=== PATIENT | female | born 1965 | race African-American/Black ===

== ENCOUNTER 2018-05-06 11:32 | Inpatient (IN) | payer OTHER ==
[2018-05-06 13:34] VITALS: BMI 28.0
--- NOTE | 2018-05-06 14:47 | HP ---
COWS - Scale Resting Pulse: 0= [place] 80 or Below Sweatin= Chills/Flushing Restless Observation: 1= Difficult to Sit Still Pupil Size: 1= Pupils >than Normal Bone or Joint Aches: 2= Severe Diffuse Aches Runny Nose/ Eye Tearin= Runny Nose/Eyes GI Upset > 30mins: 0= None Tremor Observation: 2= Slight Tremor Visible Yawning Observation: 1= 1-2x During Session Anxiety or Irritability: 2=Irritable/Anxious Goose Flesh Skin: 0=Smooth Skin COWS Score: 12 CIWA Score - CIWA Score Nausea/Vomitin-No Nausea/No Vomiting Muscle Tremors: 2 Anxiety: 2 Agitation: 2 Paroxysmal Sweats: 2 Orientation: 0-Oriented Tacttile Disturbances: 0-None Auditory Disturbances: 2-Mild Harshness/Frighten Visual Disturbances: 0-None Headache: 3-Moderate CIWA-Ar Total Score: 13 Admission ROS BHS - HPI Chief Complaint: PATIENT PRESENTS WITH HEROIN/ETOH WITHDRAWAL SX Allergies/Adverse Reactions: Allergies Allergy/AdvReac Type Severity Reaction Status Date / Time peach Allergy Severe Hives Verified 05/06/18 13:48 NKDA Allergy Uncoded 05/06/18 13:48 History of Present Illness: PATIENT PRESENTS WTIH ETOH/HEROIN WITHDRAWAL SX. PATIENT PRESENTS FIRST TIME ADMISSION TO [facility]. PATIENT HAS BEEN ADMITTED TO DETOX IN PAST, AT [facility] IN 2016. PATIENT STARTED SNIFFING HEROIN/COCAINE AND DRINKING ETOH SINCE AGE 14. PATIENT DRINKS 4 SHOTS OF LIQUOR AND SNIFFS 5 BAGS OF HEROIN DAILY. LAST TIME SHE USED BOTH SUBSTANCES WAS TODAY. PATIENT DENIES HX OF SEIZURES. +BLACKOUTS. DENIES DRINKING IN THE MORNING. PMH INCLUDES HEP C ( UNTREATED), BIPOLAR DISORDER, HTN AND DM (DIET CONTROLLED). PATIENT DENIES SI/ HI AND SUICIDE ATTEMPTS. Exam Limitations: No Limitations - Ebola screening Have you traveled outside of the country in the last 21 days: No Have you had contact with anyone from an Ebola affected area: No Have you been sick,other than usual withdrawal symptoms: No Do you have a fever: No - Review of Systems Constitutional: Chills, Night Sweats, Changes in sleep, Unexplained wgt Loss EENT: reports: Tearing, Nose Congestion Respiratory: reports: No Symptoms reported Cardiac: reports: No Symptoms Reported GI: reports: Poor Fluid Intake : reports: No Symptoms Reported Integumentary: reports: Sweating Endocrine: reports: No Symptoms Reported, Unexplained Weight Loss Hematology: reports: No Symptoms Reported Psychiatric: reports: Anxious, Depressed Patient History - Patient Medical History Hx Anemia: No Hx Asthma: No Hx Chronic Obstructive Pulmonary Disease (COPD): No Hx Cancer: No Hx Cardiac Disorders: No Hx Congestive Heart Failure: No Hx Hypertension: Yes (NO MEDS) Hx Hypercholesterolemia: No Hx Pacemaker: No HX Cerebrovascular Accident: No Hx Seizures: No Hx Dementia: No Hx Diabetes: Yes (NO MEDS) Hx Gastrointestinal Disorders: No Hx Liver Disease: Yes (HEPATITIS C) Hx Genitourinary Disorders: No Hx Sexually Transmitted Disorders: No Hx Renal Disease (ESRD): No Hx Thyroid Disease: No Hx Human Immunodeficiency Virus (HIV): No Hx Hepatitis C: Yes Hx Depression: Yes Hx Suicide Attempt: No Hx Bipolar Disorder: No Hx Schizophrenia: No - Patient Surgical History Past Surgical History: Yes Hx Neurologic Surgery: No Hx Cataract Extraction: No Hx Cardiac Surgery: No Hx Lung Surgery: No Hx Breast Surgery: No Hx Breast Biopsy: No Hx Abdominal Surgery: Yes (hysterecomy in 10/2015) Hx Appendectomy: No Hx Cholecystectomy: No Hx Genitourinary Surgery: No Hx Section: No Hx Orthopedic Surgery: No Hx Hysterectomy: Yes Anesthesia Reaction: No - PPD History Previous Implant?: Yes Documented Results: Negative w/o proof Implanted On Prior R Admission?: No PPD to be Administered?: Yes - Reproductive History Patient : No - Smoking Cessation Smoking history: Current every day smoker Have you smoked in the past 12 months: Yes Aproximately how many cigarettes per day: 8 Hx Chewing Tobacco Use: No Initiated information on smoking cessation: Yes 'Breaking Loose' booklet given: 05/06/18 - Substance & Tx. History Hx Alcohol Use: Yes Hx Substance Use: Yes Substance Use Type: Alcohol, Cocaine, Heroin, Marijuana Hx Substance Use Treatment: Yes - Substances Abused Heroin Route: Inhalation Frequency: Daily Amount used: 4-5 bags Age of first use: 15 Date of Last Use: 05/06/18 Cocaine Route: Inhalation Frequency: Daily Amount used: $50-60 Age of first use: 14 Date of Last Use: 05/05/18 Alcohol-vodka Route: Oral Frequency: Daily Amount used: 2 pts. Age of first use: 14 Date of Last Use: 05/05/18 Family Disease History - Family Disease History Family Disease History: Diabetes: Father () Admission Physical Exam [facility] - Vital Signs Vital Signs: Vital Signs - 24 hr 05/06/18 13:31 Temperature 99 F Pulse Rate 78 Respiratory 20 Rate Blood Pressure 141/100 - Physical General Appearance: Yes: Appropriately Dressed, Tremorous, Sweating, Anxious HEENTM: Yes: EOMI, Hearing grossly Normal, Normocephalic, Normal Voice, LIZETH, Pharynx Normal, Nasal Congestion Respiratory: Yes: Chest Non-Tender, Lungs Clear, Normal Breath Sounds, No Respiratory Distress, No Accessory Muscle Use Neck: Yes: No masses,lesions,Nodules, Supple Breast: Yes: Breast Exam Deferred Cardiology: Yes: Regular Rhythm, Regular Rate, S1, S2 Abdominal: Yes: Normal Bowel Sounds, Non Tender, Soft Genitourinary: Yes: Within Normal Limits Back: Yes: Normal Inspection, Muscle Spasm Musculoskeletal: Yes: full range of Motion, Gait Steady, Back pain, Muscle Pain Extremities: Yes: Normal Inspection, Normal Range of Motion, Non-Tender, Tremors Neurological: Yes: dragline oiler II-XII NML intact, Alert, Normal Response, Depressed Affect Integumentary: Yes: Normal Color, Warm, Moist Lymphatic: Yes: Within Normal Limits - Diagnostic (1) Opioid dependence with withdrawal Current Visit: Yes Status: Acute (2) Alcohol dependence with uncomplicated withdrawal Current Visit: Yes Status: Acute (3) Bipolar disorder Current Visit: Yes Status: Chronic Qualifiers: Current episode severity: unspecified (4) Marijuana dependence Current Visit: Yes Status: Chronic (5) Cocaine dependence Current Visit: Yes Status: Chronic Qualifiers: Substance use status: uncomplicated Qualified Code(s): F14.20 - Cocaine dependence, uncomplicated (6) Diabetes 1.5, managed as type 2 Current Visit: Yes Status: Chronic (7) HTN (hypertension) Current Visit: Yes Status: Chronic Qualifiers: Hypertension type: unspecified Qualified Code(s): I10 - Essential (primary ) hypertension Cleared for Admission [facility] - Detox or Rehab [facility] Level of Care: Medically Managed Detox Regimen/Protocol: Methadone/Librium [facility] Breath Alcohol Content Breath Alcohol Content: 0 Urine Pregancy Test - Result Urine Test Results: Negative- NO Line Present Urine Drug Screen - Results Drug Screen Negative: No Urine Drug Screen Results: THC-Marijuana, ROMULO-Cocaine, OPI-Opiates, MTD- Methadone, FEN-Fentanyl
[2018-05-06] MEDS ORDERED: IBUPROFEN 400 MG TABLET (FP) PO PRN (14:57)
[2018-05-06] MEDS ORDERED: MAGNESIUM HYDROX 2400MG/30ML ORAL SUSPENSION 30 ML CUP PO PRN (14:57)
[2018-05-06] MEDS ORDERED: MAGNESIUM CITRATE 300 ML BOTTLE PO PRN (14:57)
[2018-05-06] MEDS ORDERED: NICOTINE POLACRILEX 2 MG GUM BUC PRN (14:57)
[2018-05-06] MEDS ORDERED: LOPERAMIDE HCL 2 MG CAPSULE PO PRN (14:57)
[2018-05-06] MEDS ORDERED: ACETAMINOPHEN 325 MG TABLET (FP) PO PRN (14:57)
[2018-05-06] MEDS ORDERED: guaiFENesin/D-METHORPHAN HB 10 ML UNIT-DOSE CUPS PO PRN (14:57)
[2018-05-06] MEDS ORDERED: P-EPHED 60MG/TRIPROLIDI 2.5MG TABLET PO PRN (14:57)
[2018-05-06] MEDS ORDERED: MAG HYDROX/AL HYDROX/SIMETH 30 ML UNIT-DOSE CUP PO PRN (14:57)
[2018-05-06] MEDS ORDERED: MENTHOL/PHENOL 1 EACH UD MM PRN (14:57)
[2018-05-06] MEDS ORDERED: chlordiazePOXIDE HCL 25 MG CAPSULE PO PRN (14:59)
[2018-05-06] MEDS ORDERED: METHADONE HCL 10 MG TABLET (FOR DETOX USE ONLY) PO ONE ×2 (15:15→23:00)
--- NOTE | 2018-05-06 15:43 | CONSULT ---
[facility] Psychiatric Consult - Data Date of interview: 05/06/18 Admission source: [facility] Identifying data: This is a 52 years old female, single mother of three, homeless, on PA support, with psychiatric hospitalization history, reports Alcohol, Heroin, Cocaine and Nicotine dependencw, reports withdrawa; symptoms and seeking detox.As per chart has Bipolar Disorder history. Substance Abuse History: Smoking history: Current every day smoker. Have you smoked in the past 12 months: Yes. Aproximately how many cigarettes per day: 8. Hx Chewing Tobacco Use: No. Initiated information on smoking cessation: Yes. 'Breaking Loose' booklet given: 05/06/18. - Substance & Tx. History. Hx Alcohol Use: Yes. Hx Substance Use: Yes. Substance Use Type: Alcohol, Cocaine , Heroin, Marijuana. Hx Substance Use Treatment: Yes. - Substances Abused. * * Heroin. Route: Inhalation. Frequency: Daily. Amount used: 4-5 bags. Age of first use: 15. Date of Last Use: 05/06/18. Cocaine. Route: Inhalation. Frequency: Daily. Amount used: $50-60. Age of first use: 14. Date of Last Use: 05/05/18. Alcohol-vodka. Route: Oral. Frequency: Daily. Amount used : 2 pts. Age of first use: 14. Date of Last Use: 05/05/18 Medical History: HTN, DM-II, HepC+ Psychiatric History: Patient reports history of depression and anxiety, Bipolar Disorder history with most recent psychiatric admission on more then 10 years ago, reports c irrently stable on: Lamictal 25mg poqd. Seroquel 200mg po bid. Denies suicidal, homicidal ideation. Physical/Sexual Abuse/Trauma History: Denies, unclear Additional Comment: Lamictal 25mg poqd. Seroquel 200mg po, bid Mental Status Exam - Mental Status Exam Alert and Oriented to: Person Cognitive Function: Fair Patient Appearance: Unkempt Mood: Anxious Affect: Mood Congruent Patient Behavior: Cooperative Speech Pattern: Appropriate Voice Loudness: Normal Thought Process: Goal Oriented Thought Disorder: Being Controlled Hallucinations: Denies Suicidal Ideation: Denies Homicidal Ideation: Denies Insight/Judgement: Fair Sleep: Difficulty falling asleep Appetite: Weight gain Muscle strength/Tone: Mild Hypotonicity Gait/Station: Shuffling Additional Comments: Lamictal 25mg poqd. 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 Seroquel 200mg po, bid
[2018-05-06] MEDS: chlordiazePOXIDE HCL 25 MG CAPSULE PO SCH ×2 (16:38→22:31)
[2018-05-06] MEDS ORDERED: MELATONIN 5 MG TABLETS PO PRN (22:00)
[2018-05-06] MEDS: THIAMINE HCL 100 MG TABLET (FP) PO SCH (22:31)
[2018-05-06] MEDS: QUEtiapine FUMARATE 200 MG TABLET PO SCH (22:31)
[2018-05-06 23:15] LABS: URINE APPEARANCE SLCLOUDY; URINE BILIRUBIN NEGATIVE (<2.0 mg/dL); URINE COLOR LTYELLOW; URINE GLUCOSE (UA) NEGATIVE (NEGATIVE); URINE KETONE NEGATIVE (NEGATIVE); URINE LEUK ESTERASE NEGATIVE (NEGATIVE); URINE NITRITE NEGATIVE (NEGATIVE); URINE PROTEIN NEGATIVE (NEGATIVE); URINE UROBILINOGEN NEGATIVE mg/dL (0.2-1.0)
[2018-05-07] MEDS: chlordiazePOXIDE HCL 25 MG CAPSULE PO SCH ×4 (06:44→22:50)
--- NOTE | 2018-05-07 09:45 | EKG ---
Test Reason : Blood Pressure : / mmHG Vent. Rate : 085 BPM Atrial Rate : 085 BPM P-R Int : 120 ms QRS Dur : 066 ms QT Int : 308 ms P-R-T Axes : 060 051 -06 degrees QTc Int : 366 ms NORMAL SINUS RHYTHM POSSIBLE LEFT ATRIAL ENLARGEMENT SEPTAL INFARCT , AGE UNDETERMINED NONSPECIFIC ST ABNORMALITY ABNORMAL ECG NO PREVIOUS ECGS AVAILABLE Confirmed by RAQUEL KEARNEY MD ([id number]) on 05/07/2018 9:44:47 AM Referred By: Confirmed By:RAQUEL KEARNEY MD
[2018-05-07] MEDS ORDERED: METHADONE HCL 10 MG TABLET (FOR DETOX USE ONLY) PO SCH (10:00)
[2018-05-07 10:39] LABS: HEMATOCRIT 37.8 % (32.4-45.2); HEMOGLOBIN 11.9 GM/dL (10.7-15.3); MCH 22.7 pg (25.7-33.7); MCHC 31.5 g/dl (32.0-36.0); MEAN CELL VOLUME 72.1 fl (80-96); MEAN PLT VOLUME 9.2 fl (7.5-11.1); PLATELET COUNT 259 K/MM3 (134-434); RBC 5.24 M/mm3 (3.60-5.2); RDW 14.4 % (11.6-15.6); WHITE BLOOD COUNT 7.1 K/mm3 (4.0-10.0)
[2018-05-07 10:50] LABS: ALBUMIN 3.5 g/dl (3.4-5.0); ALK PHOS 85 U/L (45-117); ANION GAP 7 MMOL/L (8-16); BILIRUBIN,TOTAL 0.2 mg/dL (0.2-1); BLOOD UREA NITROGEN 23 mg/dL (7-18); CALCIUM 8.6 mg/dL (8.5-10.1); CHLORIDE 107 mmol/L (98-107); CO2 26 mmol/L (21-32); CREATININE 0.8 mg/dL (0.55-1.3); GLUCOSE,RANDOM 105 mg/dL (74-106); POTASSIUM 4.4 mmol/L (3.5-5.1); SGOT/AST 27 U/L (15-37); SGPT/ALT 43 U/L (13-61); SODIUM 140 mmol/L (136-145); TOT PROT 7.5 g/dl (6.4-8.2)
[2018-05-07] MEDS: PRENATAL VITAMINS W/ FOLIC ACID TABLET (FP) PO SCH (10:52)
[2018-05-07] MEDS: QUEtiapine FUMARATE 200 MG TABLET PO SCH ×2 (10:52→22:49)
[2018-05-07] MEDS: hydrOXYzine PAMOATE 50 MG CAPSULE (FP) PO PRN (10:52)
[2018-05-07] MEDS: lamoTRIgine 25 MG TABLET PO SCH (10:52)
--- NOTE | 2018-05-07 14:02 | PN ---
[facility] CIWA - CIWA Score Nausea/Vomitin-No Nausea/No Vomiting Muscle Tremors: 3 Anxiety: 4-Mod. Anxious/Guarded Agitation: 1-Slight > Activity Paroxysmal Sweats: No Perspiration Orientation: 0-Oriented Tacttile Disturbances: 0-None Auditory Disturbances: 0-None Visual Disturbances: 0-None Headache: 1-Very Mild CIWA-Ar Total Score: 9 S COWS - Scale Resting Pulse: 0= [place] 80 or Below Sweatin= No chills or Flushing Restless Observation: 1= Difficult to Sit Still Pupil Size: 0= Normal to Room Light Bone or Joint Aches: 2= Severe Diffuse Aches Runny Nose/ Eye Tearin= None GI Upset > 30mins: 0= None Tremor Observation of Outstretched Hands: 2= Slight Tremor Visible Yawning Observation: 1= 1-2x During Session Anxiety or Irritability: 2=Irritable/Anxious Goose Flesh Skin: 0=Smooth Skin COWS Score: 8 BHS Progress Note (SOAP) Subjective: PATIENT C/O MILD HEADACHE, ANXIETY, BODY ACHES AND SHAKES. Objective: 05/07/18 14:00 Laboratory Tests 05/06/18 05/06/18 05/07/18 16:08 16:35 06:43 WBC RBC Hgb Hct MCV MCH MCHC RDW Plt Count MPV Sodium Potassium Chloride Carbon Dioxide Anion Gap BUN Creatinine Creat Clearance w eGFR POC Glucometer 188 107 Random Glucose Calcium Total Bilirubin AST ALT Alkaline Phosphatase Total Protein Albumin Urine Color Ltyellow Urine Appearance Slcloudy Urine pH 5.0 Ur Specific [place] 1.021 Urine Protein Negative Urine Glucose (UA) Negative Urine Ketones Negative Urine Blood Negative Urine Nitrite Negative Urine Bilirubin Negative Urine Urobilinogen Negative Ur Leukocyte Esterase Negative RPR Titer HIV 1&2 Antibody Screen HIV P24 Antigen 05/07/18 05/07/18 05/07/18 07:00 07:00 07:00 WBC 7.1 RBC 5.24 H Hgb 11.9 Hct 37.8 MCV 72.1 L MCH 22.7 L MCHC 31.5 L RDW 14.4 Plt Count 259 MPV 9.2 Sodium 140 Potassium 4.4 Chloride 107 Carbon Dioxide 26 Anion Gap 7 L BUN 23 H Creatinine 0.8 Creat Clearance w eGFR > 60 POC Glucometer Random Glucose 105 Calcium 8.6 Total Bilirubin 0.2 AST 27 ALT 43 Alkaline Phosphatase 85 Total Protein 7.5 Albumin 3.5 Urine Color Urine Appearance Urine pH Ur Specific [place] Urine Protein Urine Glucose (UA) Urine Ketones Urine Blood Urine Nitrite Urine Bilirubin Urine Urobilinogen Ur Leukocyte Esterase RPR Titer HIV 1&2 Antibody Screen Negative HIV P24 Antigen Negative 05/07/18 07:00 WBC RBC Hgb Hct MCV MCH MCHC RDW Plt Count MPV Sodium Potassium Chloride Carbon Dioxide Anion Gap BUN Creatinine Creat Clearance w eGFR POC Glucometer Random Glucose Calcium Total Bilirubin AST ALT Alkaline Phosphatase Total Protein Albumin Urine Color Urine Appearance Urine pH Ur Specific [place] Urine Protein Urine Glucose (UA) Urine Ketones Urine Blood Urine Nitrite Urine Bilirubin Urine Urobilinogen Ur Leukocyte Esterase RPR Titer Nonreactive HIV 1&2 Antibody Screen HIV P24 Antigen Vital Signs Temperature 98.1 F 05/07/18 09:14 Pulse Rate 85 05/07/18 09:14 Respiratory Rate 18 05/07/18 09:14 Blood Pressure 152/84 05/07/18 09:14 O2 Sat by Pulse Oximetry (%) SKIN WARM AND DRY ALERT AND ORIENTED X 3 AMB AD DAVID EXT +TREMORS, FULL ROM 05/07/18 14:01 Assessment: 05/07/18 14:02 WITHDRAWAL SX Plan: CONTINUE DETOX ENCOURAGE ORAL FLUIDS CONTINUE TO MONITOR CLINICALLY
[2018-05-07] MEDS: THIAMINE HCL 100 MG TABLET (FP) PO SCH (22:50)
[2018-05-08] MEDS: chlordiazePOXIDE HCL 25 MG CAPSULE PO SCH ×2 (06:01→10:12)
[2018-05-08] MEDS: METHADONE HCL 5 MG TABLET (FOR DETOX USE ONLY) PO SCH (10:12)
[2018-05-08] MEDS: PRENATAL VITAMINS W/ FOLIC ACID TABLET (FP) PO SCH (10:12)
[2018-05-08] MEDS: lamoTRIgine 25 MG TABLET PO SCH (10:12)
[2018-05-08] MEDS: QUEtiapine FUMARATE 200 MG TABLET PO SCH ×2 (10:12→22:15)
--- NOTE | 2018-05-08 15:19 | PN ---
[facility] CIWA - CIWA Score Nausea/Vomitin-No Nausea/No Vomiting Muscle Tremors: 4-Moderate,w/Arms Extend Anxiety: 3 Agitation: 4-Moderately Restless Paroxysmal Sweats: No Perspiration Orientation: 0-Oriented Tacttile Disturbances: 0-None Auditory Disturbances: 0-None Visual Disturbances: 0-None Headache: 0-None Present CIWA-Ar Total Score: 11 S COWS - Scale Resting Pulse: 1= [place] 81-100 Sweatin= No chills or Flushing Restless Observation: 1= Difficult to Sit Still Pupil Size: 0= Normal to Room Light Bone or Joint Aches: 0= None Runny Nose/ Eye Tearin= Nasal Congestion GI Upset > 30mins: 0= None Tremor Observation of Outstretched Hands: 2= Slight Tremor Visible Yawning Observation: 0= None Anxiety or Irritability: 1=Feels Anxious/Irritable Goose Flesh Skin: 0=Smooth Skin COWS Score: 6 S Progress Note (SOAP) Subjective: States feels anxious but better. Still has some shakes and occasional chills. Eating okay. Objective: A&O x3. Mild tremors of hands noted. Gait steady. Conversing freely w/ roommate. Vital Signs 05/08/18 05/08/18 09:23 13:52 Temperature 96.9 F L 97.2 F L Pulse Rate 85 89 Respiratory 16 18 Rate Blood Pressure 122/89 140/71 Laboratory Last Values WBC 7.1 K/mm3 (4.0-10.0) 05/07/18 07:00 RBC 5.24 M/mm3 (3.60-5.2) H 05/07/18 07:00 Hgb 11.9 GM/dL (10.7-15.3) 05/07/18 07:00 Hct 37.8 % (32.4-45.2) 05/07/18 07:00 MCV 72.1 fl (80-96) L 05/07/18 07:00 MCH 22.7 pg (25.7-33.7) L 05/07/18 07:00 MCHC 31.5 g/dl (32.0-36.0) L 05/07/18 07:00 RDW 14.4 % (11.6-15.6) 05/07/18 07:00 Plt Count 259 K/MM3 (134-434) 05/07/18 07:00 MPV 9.2 fl (7.5-11.1) 05/07/18 07:00 Sodium 140 mmol/L (136-145) 05/07/18 07:00 Potassium 4.4 mmol/L (3.5-5.1) 05/07/18 07:00 Chloride 107 mmol/L (98-107) 05/07/18 07:00 Carbon Dioxide 26 mmol/L (21-32) 05/07/18 07:00 Anion Gap 7 MMOL/L (8-16) L 05/07/18 07:00 BUN 23 mg/dL (7-18) H 05/07/18 07:00 Creatinine 0.8 mg/dL (0.55-1.3) 05/07/18 07:00 Creat Clearance w eGFR > 60 (>60) 05/07/18 07:00 POC Glucometer 139 UNITS (80-120) 05/08/18 07:13 Random Glucose 105 mg/dL (74-106) 05/07/18 07:00 Calcium 8.6 mg/dL (8.5-10.1) 05/07/18 07:00 Total Bilirubin 0.2 mg/dL (0.2-1) 05/07/18 07:00 AST 27 U/L (15-37) 05/07/18 07:00 ALT 43 U/L (13-61) 05/07/18 07:00 Alkaline Phosphatase 85 U/L (45-117) 05/07/18 07:00 Total Protein 7.5 g/dl (6.4-8.2) 05/07/18 07:00 Albumin 3.5 g/dl (3.4-5.0) 05/07/18 07:00 Urine Color Ltyellow 05/06/18 16:08 Urine Appearance Slcloudy 05/06/18 16:08 Urine pH 5.0 (5.0-8.0) 05/06/18 16:08 Ur Specific [place] 1.021 (1.010-1.035) 05/06/18 16:08 Urine Protein Negative (NEGATIVE) 05/06/18 16:08 Urine Glucose (UA) Negative (NEGATIVE) 05/06/18 16:08 Urine Ketones Negative (NEGATIVE) 05/06/18 16:08 Urine Blood Negative (NEGATIVE) 05/06/18 16:08 Urine Nitrite Negative (NEGATIVE) 05/06/18 16:08 Urine Bilirubin Negative (<2.0 mg/dL) 05/06/18 16:08 Urine Urobilinogen Negative mg/dL (0.2-1.0) 05/06/18 16:08 Ur Leukocyte Esterase Negative (NEGATIVE) 05/06/18 16:08 RPR Titer Nonreactive (NONREACTIVE) 05/07/18 07:00 HIV 1&2 Antibody Screen Negative 05/07/18 07:00 HIV P24 Antigen Negative 05/07/18 07:00 Labs reviewed. Assessment: Withdrawal symptoms. Plan: Continue detox.
[2018-05-08] MEDS: chlordiazePOXIDE 5 MG CAPSULE PO SCH ×2 (18:07→22:15)
[2018-05-08] MEDS: THIAMINE HCL 100 MG TABLET (FP) PO SCH (22:15)
[2018-05-09] MEDS: chlordiazePOXIDE 5 MG CAPSULE PO SCH ×2 (06:28→10:28)
[2018-05-09] MEDS: hydrOXYzine PAMOATE 50 MG CAPSULE (FP) PO PRN (09:02)
[2018-05-09] MEDS: METHADONE HCL 5 MG TABLET (FOR DETOX USE ONLY) PO SCH (10:27)
[2018-05-09] MEDS: lamoTRIgine 25 MG TABLET PO SCH (10:27)
[2018-05-09] MEDS: PRENATAL VITAMINS W/ FOLIC ACID TABLET (FP) PO SCH (10:27)
[2018-05-09] MEDS: QUEtiapine FUMARATE 200 MG TABLET PO SCH ×2 (10:48→22:07)
--- NOTE | 2018-05-09 11:14 | PN ---
BHS Progress Note (SOAP) Subjective: tremor sweat anxiety restlessness body aches Objective: 05/09/18 11:12 Vital Signs Temperature 98.4 F 05/09/18 09:43 Pulse Rate 83 05/09/18 09:43 Respiratory Rate 16 05/09/18 09:43 Blood Pressure 132/64 05/09/18 09:43 O2 Sat by Pulse Oximetry (%) Laboratory Last Values WBC 7.1 K/mm3 (4.0-10.0) 05/07/18 07:00 RBC 5.24 M/mm3 (3.60-5.2) H 05/07/18 07:00 Hgb 11.9 GM/dL (10.7-15.3) 05/07/18 07:00 Hct 37.8 % (32.4-45.2) 05/07/18 07:00 MCV 72.1 fl (80-96) L 05/07/18 07:00 MCH 22.7 pg (25.7-33.7) L 05/07/18 07:00 MCHC 31.5 g/dl (32.0-36.0) L 05/07/18 07:00 RDW 14.4 % (11.6-15.6) 05/07/18 07:00 Plt Count 259 K/MM3 (134-434) 05/07/18 07:00 MPV 9.2 fl (7.5-11.1) 05/07/18 07:00 Sodium 140 mmol/L (136-145) 05/07/18 07:00 Potassium 4.4 mmol/L (3.5-5.1) 05/07/18 07:00 Chloride 107 mmol/L (98-107) 05/07/18 07:00 Carbon Dioxide 26 mmol/L (21-32) 05/07/18 07:00 Anion Gap 7 MMOL/L (8-16) L 05/07/18 07:00 BUN 23 mg/dL (7-18) H 05/07/18 07:00 Creatinine 0.8 mg/dL (0.55-1.3) 05/07/18 07:00 Creat Clearance w eGFR > 60 (>60) 05/07/18 07:00 POC Glucometer 121 UNITS (80-120) 05/09/18 06:24 Random Glucose 105 mg/dL (74-106) 05/07/18 07:00 Calcium 8.6 mg/dL (8.5-10.1) 05/07/18 07:00 Total Bilirubin 0.2 mg/dL (0.2-1) 05/07/18 07:00 AST 27 U/L (15-37) 05/07/18 07:00 ALT 43 U/L (13-61) 05/07/18 07:00 Alkaline Phosphatase 85 U/L (45-117) 05/07/18 07:00 Total Protein 7.5 g/dl (6.4-8.2) 05/07/18 07:00 Albumin 3.5 g/dl (3.4-5.0) 05/07/18 07:00 Urine Color Ltyellow 05/06/18 16:08 Urine Appearance Slcloudy 05/06/18 16:08 Urine pH 5.0 (5.0-8.0) 05/06/18 16:08 Ur Specific [place] 1.021 (1.010-1.035) 05/06/18 16:08 Urine Protein Negative (NEGATIVE) 05/06/18 16:08 Urine Glucose (UA) Negative (NEGATIVE) 05/06/18 16:08 Urine Ketones Negative (NEGATIVE) 05/06/18 16:08 Urine Blood Negative (NEGATIVE) 05/06/18 16:08 Urine Nitrite Negative (NEGATIVE) 05/06/18 16:08 Urine Bilirubin Negative (<2.0 mg/dL) 05/06/18 16:08 Urine Urobilinogen Negative mg/dL (0.2-1.0) 05/06/18 16:08 Ur Leukocyte Esterase Negative (NEGATIVE) 05/06/18 16:08 RPR Titer Nonreactive (NONREACTIVE) 05/07/18 07:00 HIV 1&2 Antibody Screen Negative 05/07/18 07:00 HIV P24 Antigen Negative 05/07/18 07:00 labn oted Assessment: 05/09/18 11:13 withdrawal sx Plan: continue detox
[2018-05-09] MEDS ORDERED: LIDOCAINE VISCOUS 2% ORAL/TOP 20 ML UNIT-DOSE CUP MM PRN (12:34)
[2018-05-09] MEDS: chlordiazePOXIDE HCL 10 MG CAPSULE PO SCH ×2 (19:20→22:07)
[2018-05-09] MEDS: THIAMINE HCL 100 MG TABLET (FP) PO SCH (22:07)
[2018-05-10] MEDS: chlordiazePOXIDE HCL 10 MG CAPSULE PO SCH ×2 (05:51→10:07)
[2018-05-10] MEDS ORDERED: METHADONE HCL 10 MG TABLET (FOR DETOX USE ONLY) PO ONE (10:00)
[2018-05-10] MEDS ORDERED: METHADONE HCL 10 MG TABLET (FOR DETOX USE ONLY) PO SCH (10:00)
[2018-05-10] MEDS ORDERED: METHADONE HCL 5 MG TABLET (FOR DETOX USE ONLY) PO SCH (10:00)
[2018-05-10] MEDS: lamoTRIgine 25 MG TABLET PO SCH (10:07)
--- NOTE | 2018-05-10 10:25 | PN ---
[facility] Progress Note (SOAP) Subjective: feeling better today but tooth ache wants to go to the dentist for pain medication encourage the patient to follow up recommendation dental appointment today patient prefers to go to the dentist tomorrow upon discharged from detox unit review ER treatment that begin augmentin continue lidocaine MM explain dental appointment in detail Objective: 05/10/18 10:24 Vital Signs Temperature 98.1 F 05/10/18 10:17 Pulse Rate 84 05/10/18 10:17 Respiratory Rate 16 05/10/18 10:17 Blood Pressure 123/76 05/10/18 10:17 O2 Sat by Pulse Oximetry (%) Laboratory Last Values WBC 7.1 K/mm3 (4.0-10.0) 05/07/18 07:00 RBC 5.24 M/mm3 (3.60-5.2) H 05/07/18 07:00 Hgb 11.9 GM/dL (10.7-15.3) 05/07/18 07:00 Hct 37.8 % (32.4-45.2) 05/07/18 07:00 MCV 72.1 fl (80-96) L 05/07/18 07:00 MCH 22.7 pg (25.7-33.7) L 05/07/18 07:00 MCHC 31.5 g/dl (32.0-36.0) L 05/07/18 07:00 RDW 14.4 % (11.6-15.6) 05/07/18 07:00 Plt Count 259 K/MM3 (134-434) 05/07/18 07:00 MPV 9.2 fl (7.5-11.1) 05/07/18 07:00 Sodium 140 mmol/L (136-145) 05/07/18 07:00 Potassium 4.4 mmol/L (3.5-5.1) 05/07/18 07:00 Chloride 107 mmol/L (98-107) 05/07/18 07:00 Carbon Dioxide 26 mmol/L (21-32) 05/07/18 07:00 Anion Gap 7 MMOL/L (8-16) L 05/07/18 07:00 BUN 23 mg/dL (7-18) H 05/07/18 07:00 Creatinine 0.8 mg/dL (0.55-1.3) 05/07/18 07:00 Creat Clearance w eGFR > 60 (>60) 05/07/18 07:00 POC Glucometer 177 UNITS (80-120) 05/10/18 05:53 Random Glucose 105 mg/dL (74-106) 05/07/18 07:00 Calcium 8.6 mg/dL (8.5-10.1) 05/07/18 07:00 Total Bilirubin 0.2 mg/dL (0.2-1) 05/07/18 07:00 AST 27 U/L (15-37) 05/07/18 07:00 ALT 43 U/L (13-61) 05/07/18 07:00 Alkaline Phosphatase 85 U/L (45-117) 05/07/18 07:00 Total Protein 7.5 g/dl (6.4-8.2) 05/07/18 07:00 Albumin 3.5 g/dl (3.4-5.0) 05/07/18 07:00 Urine Color Ltyellow 05/06/18 16:08 Urine Appearance Slcloudy 05/06/18 16:08 Urine pH 5.0 (5.0-8.0) 05/06/18 16:08 Ur Specific [place] 1.021 (1.010-1.035) 05/06/18 16:08 Urine Protein Negative (NEGATIVE) 05/06/18 16:08 Urine Glucose (UA) Negative (NEGATIVE) 05/06/18 16:08 Urine Ketones Negative (NEGATIVE) 05/06/18 16:08 Urine Blood Negative (NEGATIVE) 05/06/18 16:08 Urine Nitrite Negative (NEGATIVE) 05/06/18 16:08 Urine Bilirubin Negative (<2.0 mg/dL) 05/06/18 16:08 Urine Urobilinogen Negative mg/dL (0.2-1.0) 05/06/18 16:08 Ur Leukocyte Esterase Negative (NEGATIVE) 05/06/18 16:08 RPR Titer Nonreactive (NONREACTIVE) 05/07/18 07:00 HIV 1&2 Antibody Screen Negative 05/07/18 07:00 HIV P24 Antigen Negative 05/07/18 07:00 lab noted Assessment: 05/10/18 10:24 mild withdrawal sx Plan: medically supervised detox
[2018-05-10] MEDS: AMOX TR/POT CLAV 875MG/125MG TABLETS (FP) PO SCH ×2 (10:58→18:15)
[2018-05-10] MEDS: QUEtiapine FUMARATE 200 MG TABLET PO SCH ×2 (10:58→22:16)
[2018-05-10] MEDS: PRENATAL VITAMINS W/ FOLIC ACID TABLET (FP) PO SCH (10:59)
[2018-05-10] MEDS: THIAMINE HCL 100 MG TABLET (FP) PO SCH (22:16)
[2018-05-11] MEDS ORDERED: METHADONE HCL 5 MG TABLET (FOR DETOX USE ONLY) PO SCH ×2 (06:00)
[2018-05-11] MEDS: AMOX TR/POT CLAV 875MG/125MG TABLETS (FP) PO SCH (08:01)
[2018-05-11 09:43] VITALS: BP 142/74; PULSE 83; TEMP 97.9
[2018-05-11] MEDS: lamoTRIgine 25 MG TABLET PO SCH (10:20)
[2018-05-11] MEDS: PRENATAL VITAMINS W/ FOLIC ACID TABLET (FP) PO SCH (10:20)
--- NOTE | 2018-05-11 10:46 | DS ---
[facility] Detox Discharge Summary Admission Date: 05/06/18 Discharge Date: 05/11/18 - History Present History: Alcohol Dependence, Opioid Dependence Additional Comments: 52 years old female admitted on 05/06/18 for alcohol and opiate withdrawal sx completed detox regimen tolerated well denies alcohol and opiate withdrawal sx alert oriented x 3 no acute distress [facility] patient prefers to be discharged today instead of yesterday for dentist visit patient acknowledged that dental health and oral health are important part of hygiene care Pertinent Past History: patient agrees to continue augmentin and oral hygiene - Physical Exam Results Vital Signs: Vital Signs Temperature 97.9 F 05/11/18 09:43 Pulse Rate 83 05/11/18 09:43 Respiratory Rate 16 05/11/18 09:43 Blood Pressure 142/74 05/11/18 09:43 O2 Sat by Pulse Oximetry (%) Pertinent Admission Physical Exam Findings: alcohol and opiate withdrawal sx Vital Signs Temperature 97.9 F 05/11/18 09:43 Pulse Rate 83 05/11/18 09:43 Respiratory Rate 16 05/11/18 09:43 Blood Pressure 142/74 05/11/18 09:43 O2 Sat by Pulse Oximetry (%) Laboratory Last Values WBC 7.1 K/mm3 (4.0-10.0) 05/07/18 07:00 RBC 5.24 M/mm3 (3.60-5.2) H 05/07/18 07:00 Hgb 11.9 GM/dL (10.7-15.3) 05/07/18 07:00 Hct 37.8 % (32.4-45.2) 05/07/18 07:00 MCV 72.1 fl (80-96) L 05/07/18 07:00 MCH 22.7 pg (25.7-33.7) L 05/07/18 07:00 MCHC 31.5 g/dl (32.0-36.0) L 05/07/18 07:00 RDW 14.4 % (11.6-15.6) 05/07/18 07:00 Plt Count 259 K/MM3 (134-434) 05/07/18 07:00 MPV 9.2 fl (7.5-11.1) 05/07/18 07:00 Sodium 140 mmol/L (136-145) 05/07/18 07:00 Potassium 4.4 mmol/L (3.5-5.1) 05/07/18 07:00 Chloride 107 mmol/L (98-107) 05/07/18 07:00 Carbon Dioxide 26 mmol/L (21-32) 05/07/18 07:00 Anion Gap 7 MMOL/L (8-16) L 05/07/18 07:00 BUN 23 mg/dL (7-18) H 05/07/18 07:00 Creatinine 0.8 mg/dL (0.55-1.3) 05/07/18 07:00 Creat Clearance w eGFR > 60 (>60) 05/07/18 07:00 POC Glucometer 177 UNITS (80-120) 05/10/18 05:53 Random Glucose 105 mg/dL (74-106) 05/07/18 07:00 Calcium 8.6 mg/dL (8.5-10.1) 05/07/18 07:00 Total Bilirubin 0.2 mg/dL (0.2-1) 05/07/18 07:00 AST 27 U/L (15-37) 05/07/18 07:00 ALT 43 U/L (13-61) 05/07/18 07:00 Alkaline Phosphatase 85 U/L (45-117) 05/07/18 07:00 Total Protein 7.5 g/dl (6.4-8.2) 05/07/18 07:00 Albumin 3.5 g/dl (3.4-5.0) 05/07/18 07:00 Urine Color Ltyellow 05/06/18 16:08 Urine Appearance Slcloudy 05/06/18 16:08 Urine pH 5.0 (5.0-8.0) 05/06/18 16:08 Ur Specific [place] 1.021 (1.010-1.035) 05/06/18 16:08 Urine Protein Negative (NEGATIVE) 05/06/18 16:08 Urine Glucose (UA) Negative (NEGATIVE) 05/06/18 16:08 Urine Ketones Negative (NEGATIVE) 05/06/18 16:08 Urine Blood Negative (NEGATIVE) 05/06/18 16:08 Urine Nitrite Negative (NEGATIVE) 05/06/18 16:08 Urine Bilirubin Negative (<2.0 mg/dL) 05/06/18 16:08 Urine Urobilinogen Negative mg/dL (0.2-1.0) 05/06/18 16:08 Ur Leukocyte Esterase Negative (NEGATIVE) 05/06/18 16:08 RPR Titer Nonreactive (NONREACTIVE) 05/07/18 07:00 HIV 1&2 Antibody Screen Negative 05/07/18 07:00 HIV P24 Antigen Negative 05/07/18 07:00 lab noted continue augmentin and oral care patient agrees to follow up with dental services - Treatment Hospital Course: Detox Protocol Followed, Detoxed Safely, Responded well, Discharged Condition Good, Rehab Referral Accepted Patient has Accepted a Rehab Referral to: addiction rehabilitation center - Medication Discharge Medications: Ambulatory Orders Lamotrigine [Lamictal -] 25 mg PO DAILY #30 tablet 05/06/18 Quetiapine Fumarate [Seroquel -] 200 mg PO BID #60 tablet 05/06/18 Amox-Tr/K Cl [Augmentin 875-125mg Tablet -] 1 tab PO BID@0800,1730 #7 tablet - Diagnosis (1) Alcohol dependence with uncomplicated withdrawal Current Visit: Yes Status: Acute (2) Opioid dependence with withdrawal Current Visit: Yes Status: Acute (3) Diabetes 1.5, managed as type 2 Current Visit: Yes Status: Chronic (4) HTN (hypertension) Current Visit: Yes Status: Chronic Qualifiers: Hypertension type: essential hypertension Qualified Code(s): I10 - Essential (primary) hypertension (5) Tooth pain Current Visit: Yes Status: Acute - AMA Did Patient Leave Against Medical Advice: No
== END 2018-05-11 10:23 | disposition home or self-care (01) | DRG 773 ==
LOC: YASAS 11:32 → Y6N 15:04
PROC: HZ2ZZZZ Detoxification Services for Substance Abuse Treatment (ICD-10-PCS; principal; 2018-05-06)
DX: F11.23 Opioid dependence with withdrawal (principal); F10.230 Alcohol dependence with withdrawal, uncomplicated; F14.20 Cocaine dependence, uncomplicated; F12.20 Cannabis dependence, uncomplicated; F31.9 Bipolar disorder, unspecified; I10 Essential (primary) hypertension; E11.9 Type 2 diabetes mellitus without complications; K08.89 Other specified disorders of teeth and supporting structures
CPT/HCPCS: 36415; 80053; 81003; 82962; 85027; 86593; 87389; 93005; 93010

== ENCOUNTER 2018-05-09 13:54 | Emergency (ER) | payer OTHER ==
[2018-05-09 14:02] VITALS: BP 129/74; PULSE 74; TEMP 98.7; BMI 28.0
--- NOTE | 2018-05-09 14:07 | PDOC ---
History of Present Illness - General Chief Complaint: Toothache Stated Complaint: TOOTH PAIN Time Seen by Provider: 05/09/18 14:07 History Source: Patient Exam Limitations: Clinical Condition (Pt very lethargic, takes Seroquel at detox which "makes her sleepy".) - History of Present Illness Initial Comments: Pt is a 52 yo F, with PMH of Hep C, HTN, DM, EtOH/cocaine/heroin abuse, who is presenting from [facility] rehab facility with 2 days of R maxillar tooth pain ( 2nd premolar). She states she has minimal pain at this time. Pt states the pain has been improved with PO tylenol and motrin, but the pain returns about 8 hours later. She states there is minimal gingival bleeding when eating, and the tooth "feels loose". Pt denies any pustular oral drainage, headache, vision changes, facial pain, chest pain, SOB, nausea/vomiting, abdominal pain, or diarrhea/constipation. The pt is at [facility] for detox from alcohol, opiates, cocaine, and heroin. She will be leaving the facility in 4 days and can follow-up with a dentist outpatient. 05/12/18 19:37 Past History - Travel Traveled outside of the country in the last 30 days: No Close contact w/someone who was outside of country & ill: No - Past Medical History Allergies/Adverse Reactions: Allergies Allergy/AdvReac Type Severity Reaction Status Date / Time peach Allergy Severe Hives Verified 05/06/18 13:48 No Known Drug Allergies Allergy Verified 05/06/18 16:29 NKDA Allergy Uncoded 05/06/18 13:48 Home Medications: Ambulatory Orders Lamotrigine [Lamictal -] 25 mg PO DAILY #30 tablet 05/06/18 Quetiapine Fumarate [Seroquel -] 200 mg PO BID #60 tablet 05/06/18 Amox-Tr/K Cl [Augmentin 875-125mg Tablet -] 1 tab PO BID@0800,1730 #7 tablet Anemia: No Asthma: No Cancer: No Cardiac Disorders: No CVA: No COPD: No CHF: No Dementia: No Diabetes: Yes (NO MEDS) GI Disorders: No Disorders: No HTN: Yes (NO MEDS) Hypercholesterolemia: No Kidney Stones: No Liver Disease: Yes (HEPATITIS C) Seizures: No Thyroid Disease: No - Surgical History Abdominal Surgery: Yes (hysterecomy in 10/2015) Appendectomy: No Cardiac Surgery: No Cholecystectomy: No Lung Surgery: No Neurologic Surgery: No Orthopedic Surgery: No - Reproductive History PID: No - Suicide/Smoking/Psychosocial Hx Smoking History: Current every day smoker Have you smoked in the past 12 months: Yes Number of Cigarettes Smoked Daily: 3 Information on smoking cessation initiated: No 'Breaking Loose' booklet given: 05/06/18 Hx Alcohol Use: Yes Drug/Substance Use Hx: Yes Substance Use Type: Alcohol, Cocaine, Heroin, Marijuana Hx Substance Use Treatment: Yes Review of Systems - Review of Systems Able to Perform ROS?: Yes Comments:: Pt lethargic due to seroquel given at [facility]. 05/12/18 19:38 Is the patient limited Turkish proficient: Yes Constitutional: Yes: Weight Stable. No: Chills, Fever, Loss of Appetite HEENTM: Yes: Dental Problems. No: Recent change in vision, Throat Pain, Throat Swelling, Mouth Pain, Difficulty Swallowing, Mouth Swelling Respiratory: No: Cough, Shortness of Breath Cardiac (ROS): No: Chest Pain, Syncope ABD/GI: No: Diarrhea, Nausea, Poor Appetite, Poor Fluid Intake, Vomiting : No: Dysuria, Pain Musculoskeletal: No: Back Pain, Joint Pain Integumentary: No: Bruising, Erythema, Lesions, Other (no oral bleeding) Neurological: No: Headache, Seizure, Unsteady Gait, Ataxia, Dizziness Psychiatric: No: Sleep Pattern Change, Change in Appetite Endocrine: No: Increased Urine, Change in Weight Hematologic/Lymphatic: No: Anemia, Blood Clots, Easy Bleeding, Easy Bruising *Physical Exam - Vital Signs Last Vital Signs Temp Pulse Resp BP Pulse Ox 98.7 F 74 18 129/74 95 05/09/18 14:00 05/09/18 14:00 05/09/18 14:00 05/09/18 14:00 05/09/18 14:00 - Physical Exam General Appearance: Yes: Nourished, Appropriately Dressed. No: Apparent Distress HEENT: positive: EOMI, LIZETH, Normal Voice, Symmetrical, TMs Normal, Pharynx Normal, Hearing Grossly Normal, Other (loose, 2nd premolar R maxillar tooth. No oral bleeding noted. No tenderness to palpation around tooth or gumline. Pt missing multiple molars b/l and both mandibular/maxillar. No area of fluctuance noted.). negative: Normal ENT Inspection, Scleral Icterus (R), Scleral Icterus (L), Muffled/Hoarse voice, Pharyngeal Erythema, Tonsillar Exudate, Tonsillar Erythema, Rhinorrhea, TM Bulging, TM Erythema Neck: positive: Trachea midline, Normal Thyroid, Supple. negative: Tender, Rigid, Lymphadenopathy (R), Lymphadenopathy (L) Respiratory/Chest: positive: Lungs Clear, Normal Breath Sounds. negative: Chest Tender, Respiratory Distress, Accessory Muscle Use, Crackles, Wheezing Cardiovascular: positive: Regular Rhythm, Regular Rate, S1, S2. negative: Edema , JVD, Murmur Vascular Pulses: Carotid (R): 4+, Carotid (L): 4+ Gastrointestinal/Abdominal: positive: Normal Bowel Sounds, Flat, Soft. negative : Tender, Organomegaly, Pulsatile Mass, Distended, Guarding, Rebound Rectal Exam: positive: deferred Lymphatic: negative: Adenopathy, Tenderness Musculoskeletal: positive: Normal Inspection. negative: CVA Tenderness Extremity: positive: Normal Capillary Refill, Normal Inspection, Normal Range of Motion, Pelvis Stable. negative: Tender Integumentary: positive: Normal Color, Dry, Warm. negative: Jaundice, Rash, Ecchymosis Neurologic: positive: endocrinology specialist II-XII NML intact, Fully Oriented, Alert (lethargic but arousable), Normal Response, Motor Strength 5/5, Depressed Affect. negative : Normal Mood/Affect (pt lethargic), EOM Palsy, Facial Droop Medical Decision Making - Medical Decision Making Pt was seen at bedside, also will be seen by attending Dr. Hutchins. Pt presenting from [facility] rehab facility with 2 days of R maxillar tooth pain (2nd premolar ). She states she has minimal pain at this time. Pt states the pain has been improved with PO tylenol and motrin, but the pain returns about 8 hours later. She states there is minimal gingival bleeding when eating, and the tooth "feels loose". Pt denies any pustular oral drainage, headache, vision changes, facial pain, chest pain, SOB, nausea/vomiting, abdominal pain, or diarrhea/ constipation. Pt is at [facility] for detox from alcohol, opiates, cocaine, and heroin. She will be leaving the facility in 4 days and can follow- up with a dentist outpatient. PE showed poor dentition with multiple cavities, missing multiple mandibular and maxillar molars, no open pockets or bleeding at this time. R maxillar 2nd premolar tooth loose, but no obvious abscess or drainage present. Pt is lethargic, and pt states she gets "sleepy" after receiving her Seroquel. Considering that pt heavily uses cocaine and heroin, teeth are likely loose due to mucosal vasoconstriction. No surgical intervention required at this time. Provided 650 mg PO Tylenol for improvement of pain. Will continue to reassess pt and monitor for symptomatic improvement. 05/09/18 14:18 Pt was provided PO Tylenol for pain with improvement. Considering unconcerning exam, pt can be discharged to [facility] with follow-up. Pt advised to follow-up with PCP in 1-2 days, and . Strict return precautions provided with pt understanding. In disposition, recommending to [facility] Augmentin 875 mg PO BID x7 days. 05/09/18 14:57 05/12/18 19:36 *DC/Admit/Observation/Transfer Diagnosis at time of Disposition: Tooth pain - Discharge Dispostion Disposition: SENIOR CARE FACILITY Condition at time of disposition: Good Decision to Admit order: No - Referrals Referrals: [facility] [place] [Provider Group] - Patient Instructions Printed Discharge Instructions: DI for Dental Pain Additional Instructions: You were seen in the ER today for tooth pain. Your exam today was not concerning for a dental abscess or infection. Please follow-up with your primary care doctor within 1-2 days to discuss your visit and make sure your symptoms have improved. Please return to the ER if you have any worsening pain, worsening bleeding in your mouth, loss of consciousness, inability to tolerate food or fluids, development of fevers or chills, or any other concerns. To [facility]: We recommend Augmentin 875 mg BID for 7 days for prevention of dental infection until the pt can see a physician. - Post Discharge Activity
--- NOTE | 2018-05-09 14:36 | PDOC ---
Attending Attestation - Resident Resident Name: Keiry Moreno - ED Attending Attestation I have performed the following: I have examined & evaluated the patient, The case was reviewed & discussed with the resident, I agree w/resident's findings & plan, Exceptions are as noted - HPI HPI: 05/09/18 14:51 52y F hx of polysubstance abuse presents with tooth ache x several weeks, pt staets she thinks she bit into something hard a few weeksa go and has been having persistent mild pain since then. Pt deneis any fever/chills, neck pain, ear pain. - Physicial Exam PE: 05/09/18 14:47 GENERAL: The patient is awake, alert, and fully oriented, Nontoxic - in no acute distress. HEAD: Normocephalic, atraumatic. ENT: Normal voice, Moist mucous membranes, poor dentition, loose molar R upper (2), no erythema, induration, flutuance,no mastoid tenderness,no maxillar tenderness NECK: Normal range of motion, supple - Medical Decision Making 05/09/18 14:33 no signs of abxcess, mastoiditis will start augmentin will reer to dentist tylenol for pain return precautions were discussed
[2018-05-09] MEDS ORDERED: ACETAMINOPHEN 325 MG TABLET (FP) PO ONE (14:39)
[2018-05-09] MEDS ORDERED: ACETAMINOPHEN 325 MG TABLET (FP) ONE (14:43)
== END 2018-05-09 15:53 ==
LOC: JER 13:54
DX: K02.9 Dental caries, unspecified (principal); I10 Essential (primary) hypertension; E11.9 Type 2 diabetes mellitus without complications; B18.2 Chronic viral hepatitis C; F17.210 Nicotine dependence, cigarettes, uncomplicated; F11.10 Opioid abuse, uncomplicated; F10.10 Alcohol abuse, uncomplicated; F14.20 Cocaine dependence, uncomplicated; F12.20 Cannabis dependence, uncomplicated
CPT/HCPCS: 82962; 99282-25